=== PATIENT | female | born 1970 | race Caucasian/White ===

== ENCOUNTER → 2016-11-28 | Outpatient (CLI) | payer OTHER ==
[~2016-11-28] MED LIST: ALENDRONATE SOD70 MG PO; CALCIUM500 MG PO; FLONASE 0.05%50 MCG NASAL; HYDROCODON-ACE1 EAC8 PO; IRON325 PO; LEVAQUIN 500 M500 M2 PO; LEVAQUIN 750 M750 MG PO; LOMOTIL TABLET1 EACH PO; OMEPRAZOLE40 MG PO; POTASSIUM CHLO20 MEQ PO; THRIVE; VANCO1GM IV; ZOLOFT50 MG PO
[2016-11-28 14:29] LABS: HEMATOCRIT 31.5 % (37.0-47.0); HEMOGLOBIN 10.4 gm/dL (12.0-15.0); MCH 29.5 pg (26.0-34.0); MCHC 33.1 g/dL (28.0-37.0); MCV 89.3 fL (80.0-100.0); RBC 3.53 mil/uL (4.20-5.00); RDW 18.4 % (10.5-14.5); WBC 4.3 thou/uL (4.0-11.0)
[2016-11-28 14:51] LABS: ALBUMIN 3.4 g/dL (3.4-5.0); CALCIUM 8.7 mg/dL (8.5-10.1); CREATININE 0.6 mg/dL (0.6-1.0); POTASSIUM 3.8 mmol/L (3.5-5.1); TOTAL BILIRUBIN 0.4 mg/dL (<0.1-1.0); TOTAL PROTEIN 6.7 g/dL (6.4-8.2)
[2016-11-28 15:14] VITALS: BP 134/79
[2016-11-28 15:15] VITALS: BP 134/79
== END ==
LOC: OPONC 10:55
PROVIDERS: Specialist
DX: T81.4XXA Infection following a procedure, initial encounter (principal)
CPT/HCPCS: 95000

== ENCOUNTER 2016-12-15 19:33 | Inpatient (IN) | payer OTHER ==
[~2016-12-15] VITALS: Ht 165.1 cm; Wt 79.2 kg
--- NOTE | ~2016-12-15 | HC ---
[facility] Madalyn [place] [address] CONSULTATION Name: MARILYNDAWIT J Room #: 417-I ADM IN ..#: [id number] Admission: 12/15/16 Attend Phys: Mary Jane Harrison MD Discharge: Date of : 70 Report #: [id number] THIS REPORT FOR: //name// CC: Lisandro Harrison CHIEF COMPLAINT: Evaluate left infected nonunion, subtalar joint with fever, headache and acute renal failure. 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 She has a history of left foot inversion since . In February 2016, she underwent a fusion of the subtalar joint and talonavicular joint. Despite being nonweightbearing for 3 months, she had persistent nonunion. She was taken to surgery by Dr. Dozier on 11/26/2016 for exploration of the joint and explantation of the talonavicular hardware. There was gross evidence of infection. Cultures remain negative. Initially treated with Levaquin, then switched to vancomycin. She has been on vancomycin since 11/28/2016. Was overall doing reasonably well with good healing of her incision. Her last laboratory studies on 12/09/2016 revealed a hemoglobin of 10.2, WBC 4.6, platelet count 224,000 with unremarkable differential, sedimentation rate 15, creatinine 0.6. Liver function tests normal. Vancomycin trough 13.1. Her last office visit was on 12/11/2016. She had just been back to work and noticed that she was a bit fatigued and had some myalgias. Subsequently following that visit she developed fever. Blood cultures and urine culture were obtained on December 13, which remained negative. She presented to the Emergency Room at my direction because of persistent fever. There, her laboratory studies noted a creatinine over 5 with increased liver function tests and was therefore transferred to [facility]. She reports headache, neck pain along with pain in her upper shoulders and back. Temperature up to 101 degrees. Occasional chill. Mild photophobia. No pharyngitis symptoms, although she has had sinus congestion. No cough or sputum production. No nausea, vomiting or diarrhea. She has been noticing decreased urine output the last several days. Denies any rash. No increased pain in her left foot. ALLERGIES: ADHESIVE TAPE, PERCOCET, ORAL STEROIDS. MEDICATIONS: Include vancomycin 1200 mg q.12 hours, sertraline, omeprazole, p.r.n. Lomotil, potassium, alendronate, fluticasone, iron, calcium, hydrocodone with Tylenol. PAST MEDICAL HISTORY: Tonsillectomy, cholecystectomy, appendectomy, hysterectomy, mini gastric bypass and [place] [address] CONSULTATION Name: DAWIT SANDERS Room #: 417-I ADM IN M.R.#: [id number] Admission: 12/15/16 Attend Phys: Mary Jane Harrison MD Discharge: Date of : 70 Report #: [id number] FAMILY HISTORY: Stroke, cancer breast, diabetes. SOCIAL HISTORY: Nonsmoker, no significant alcohol intake, no HIV risk factors. REVIEW OF SYSTEMS: As noted above. PHYSICAL EXAMINATION: VITAL SIGNS: Afebrile, temperature was 99.7, vital signs stable. GENERAL: She was alert and cooperative and pleasant, in no acute distress. HEENT: Unremarkable. NECK: Supple, no adenopathy, no rashes. Her neck was supple. Mental status normal. LUNGS: Clear. HEART: Regular, without murmur. ABDOMEN: Soft, nontender, no hepatosplenomegaly or mass identified. EXTREMITIES: Left ankle incision well approximated. No cellulitis. Right upper extremity PICC site was unremarkable. PICC having been removed yesterday evening. LABORATORY STUDIES: As noted, I called on her microbiology reports from [place], [place]. Blood and urine cultures negative to date. Chest x-ray was clear. I have ultrasound ordered. IMPRESSION: A 46-year-old with left ankle nonunion on IV antibiotic therapy now for approximately 4 weeks. Acute febrile syndrome with profound headache and acute renal failure with evidence of hepatitis. The acute renal failure is nonoliguric. Considerations would include vancomycin reaction, now toxicity, acute viral process with meningitis and hepatitis. Central venous catheter infection still possible, but that would not explain her acute renal failure. It is noted that her albumin and protein were very elevated and we will also screen for paraprotein process. RECOMMENDATION: Had held her vancomycin. Her level is toxic at this time due to her acute renal failure. We will have Nephrology evaluate and assist with her acute renal failure. Obtain ultrasound of her abdomen. Since her blood cultures are negative at 3 days, I will obtain a spinal tap and CT scan of the head to ensure there is no evidence of meningitis. We will also check viral studies and paraprotein studies. She will be continued on IV fluids to maintain adequate urine output and hydration. <ELECTRONICALLY SIGNED> By: Lisandro Baez MD 12/17/16 1113 0944 [facility] Lisandro Baez MD /nt
--- NOTE | ~2016-12-15 | S ---
[facility] [place] [place] [address] SURGICAL PATH RPT PROCEDURE Name: JULIANA SANDERS Room #: 417-I ADM IN M.R.#: [id number] Admission: 12/15/16 Date of : 70 Discharge: Report #: [id number] Path Case #: [id number] PATHOLOGY REPORT COLLECTION DATE: 12/19/2016 RECEIVED DATE: 12/19/2016 SUBMITTING PHYS: Dr. Triston Delaney OTHER PHYS: SPECIMEN(S) RECEIVED: A.Gastritis * * * * * * * * * * * * FINAL DIAGNOSIS: Stomach, biopsy: - Chronic inactive gastritis with reactive features. - An H. pylori immunostain is negative (Block A1; appropriately reactive control). PATHOLOGIST: Ry Tanner M.D. REPORT ELECTRONICALLY SIGNED BY: Ry Tanner M.D. DATE/TIME: 12/22/2016 10:44 * * * * * * * * * * * * GROSS PATHOLOGY: Received in formalin labeled "Juliana Sanders, BX of gastritis," are 4 segments of gonzalez soft tissue measuring 1.9 x 0.3 x 0.3 cm in aggregate dimensions and ranging from 0.2 to 0.4 cm in maximum dimension. The specimen is submitted entirely in cassette A1. (TSD; 12/19/2016) CLINICAL HISTORY: Hx of ulcers INITIAL CPT CODE(S): A; 81555, 35879 Professional services performed by [facility] at [facility] [address] [place] [address] Technical services performed by [facility] at [address] [place] [address], [place] [address], [place] [address]. [facility] [address] [place] [address] SURGICAL PATH RPT PROCEDURE Name: JULIANA SANDERS Room #: 417-I ADM IN M.R.#: [id number] Admission: 12/15/16 Date of : 70 Discharge: Report #: [id number] Path Case #: [id number] [facility] [address] PHONE: [phone] DIRECTOR: Salvador Bridges M.D. * * * END OF REPORT * * *
--- NOTE | ~2016-12-15 | P ---
[facility] [place] [address] PROCEDURE REPORT Name: DAWIT SANDERS Room #: 417-I [facility]#: [id number] Admission: 12/15/16 Attend Phys: Mary Jane Harrison MD Discharge: 12/24/16 Date of : 70 Report #: [id number] THIS REPORT FOR: //name// CC: Lisandro Harrison INPATIENT UPPER ENDOSCOPY REPORT BRIEF HISTORY: The patient is a 46-year-old woman who has had recent difficulties with hardware for orthopedic surgery with evidence of infection. She also has acute kidney injury. She has developed nausea and vomiting. She also has anemia. She does have a history of bariatric surgery and she calls it "mini gastric bypass." She does report a prior history of bleeding gastric ulcer and avoid use of nonsteroidals because of that. PREOPERATIVE DIAGNOSES: Anemia, nausea and vomiting. POSTOPERATIVE DIAGNOSES: 1. Mild esophagitis. 2. Small hiatus hernia. 3. Gastric changes consistent with previous bariatric surgery. MEDICATIONS: Deep sedation with propofol per anesthesia. SPECIMEN: Biopsies of gastric mucosa rule out H. pylori. ESTIMATED BLOOD LOSS: 3 mL. PROCEDURE: EGD with biopsy. FINDINGS: Prior to propofol sedation, procedure of upper endoscopy was reviewed with the patient as well as potential risks and its complications. She indicates she understands and desires to proceed. DESCRIPTION OF PROCEDURE: With the patient in left lateral decubitus position, the Fuji video endoscope was inserted in the cervical esophagus under direct vision without difficulty. Examination of this organ through its entire length revealed normal esophageal mucosa down the squamocolumnar junction. The squamocolumnar junction was intact. There were few erosions. No ulcers were seen. There was no evidence of Chavarria's mucosa. Beyond the GE junction, a small 2 cm hiatus hernia was seen. Mucosa and hernia was normal. It was also noted she had some bile secretions within her stomach. The scope was advanced. I am not exactly sure what was done with regards to her bariatric surgery. She said she had a mini gastric bypass. However, it appears to me that there was a long tubular structure of the stomach, which looks more like a sleeve. I wonder if she had some sort of gastric stapling. Then, there was anastomosis with what [facility] [address] [place] [address] PROCEDURE REPORT Name: DAWIT SANDERS Room #: 417-I [facility].#: [id number] Admission: 12/15/16 Attend Phys: Mary Jane Harrison MD Discharge: 12/24/16 Date of : 70 Report #: [id number] looks like a gastrojejunostomy. Two limbs were identified. One limb was copious with bile presumably the apparent limb from the duodenum. I passed the scope the entire length to this limb, but could not reach the proximal duodenum. The other limb was entered. There was no bile in this limb. I advanced the scope the entire length, but no other abnormalities were seen. Scope was withdrawn back into the stomach and anastomosis was inspected. She has a history of an ulcer, but I see no evidence of ulcers. The mucosa anastomosis intact. At that point, the scope was slowly withdrawn and careful circumferential views confirmed the above findings. The patient tolerated the procedure well. DISPOSITION: The patient with abdominal pain, nausea and vomiting. I do not see evidence of ulcer disease, nor do I see evidence of outlet obstruction. We will continue PPI. We will follow up on biopsies. We will also add sucralfate. We will treat nausea and vomiting symptomatically at this time. <ELECTRONICALLY SIGNED> By: Triston Delaney MD 12/25/16 1200 [id number] Triston Delaney MD /nt
[2016-12-15 19:41] VITALS: BP 133/75
[2016-12-15 19:54] VITALS: BP 144/66
[2016-12-15 20:31] LABS: ABSOLUTE NEUTROPHILS 3.6 thou/uL (1.4-8.2); BASOPHILS 0.5 % (0.0-2.0); EOSINOPHILS 4.5 % (0.0-3.0); HEMATOCRIT 27.4 % (37.0-47.0); HEMOGLOBIN 9.3 gm/dL (12.0-15.0); LYMPHOCYTES 11.4 % (24.0-44.0); MANUAL DIFF NO; MCH 30.2 pg (26.0-34.0); MCV 88.8 fL (80.0-100.0); MONOCYTES 9.8 % (1.0-8.0); PLATELET COUNT 209 thou/uL (150-400); POLYS 73.8 % (36.0-66.0); RBC 3.09 mil/uL (4.20-5.00); RDW 15.9 % (10.5-14.5); WBC 4.8 thou/uL (4.0-11.0)
[2016-12-15 20:40] LABS: CALCIUM 7.9 mg/dL (8.5-10.1); CREATININE 5.6 mg/dL (0.6-1.0); POTASSIUM 3.8 mmol/L (3.5-5.1)
[2016-12-15] MEDS ORDERED: VANCOMYCIN1.25 GM/22 IV (21:07)
[2016-12-15 21:50] VITALS: BP 128/78
[2016-12-15 22:00] VITALS: BP 135/90
[2016-12-15 22:19] LABS: ALBUMIN 15.7 g/dL (3.4-5.0); TOTAL BILIRUBIN 1.2 mg/dL (<0.1-1.0); TOTAL PROTEIN 52.8 g/dL (6.4-8.2)
[2016-12-15 22:25] LABS: URINE BILIRUBIN NEGATIVE (Negative); URINE BLOOD TRACE (Negative); URINE COLOR YELLOW; URINE GLUCOSE-RANDOM* NEGATIVE (Negative); URINE KETONES NEGATIVE (Negative); URINE NITRITE NEGATIVE (Negative); URINE PROTEIN (DIPSTICK) NEGATIVE (Negative); URINE SPECIFIC GRAVITY <= 1.005 (1.003-1.035); URINE UROBILINOGEN 0.2 E.U./dl (0.2-1.0)
[2016-12-15 22:32] LABS: DIRECT BILIRUBIN 0.1 mg/dL (<0.1-0.3)
[2016-12-15] MEDS ORDERED: POTASSIUM20 PO (22:42)
[2016-12-15] MEDS ORDERED: VANCO 1.251.25 GM/15 IV (22:46)
[2016-12-16] VITALS: BP 127/77
[2016-12-16 04:11] VITALS: BP 126/74
[2016-12-16 06:25] LABS: CALCIUM 7.4 mg/dL (8.5-10.1); CREATININE 5.7 mg/dL (0.6-1.0); MAGNESIUM 2.2 mg/dL (1.8-2.4); PHOSPHORUS 4.8 mg/dL (2.5-4.9); POTASSIUM 3.1 mmol/L (3.5-5.1)
[2016-12-16 07:18] VITALS: BP 131/71
[2016-12-16 07:48] LABS: PROTIME 10.3 Seconds (9.3-11.4)
[2016-12-16 10:02] LABS: CALCIUM 7.8 mg/dL (8.5-10.1); CREATININE 5.4 mg/dL (0.6-1.0); POTASSIUM 3.5 mmol/L (3.5-5.1)
[2016-12-16 10:07] LABS: ALBUMIN 2.5 g/dL (3.4-5.0); TOTAL BILIRUBIN 0.5 mg/dL (<0.1-1.0)
[2016-12-16 11:45] LABS: MAGNESIUM 2.2 mg/dL (1.8-2.4); PHOSPHORUS 5.3 mg/dL (2.5-4.9)
[2016-12-16 13:11] LABS: IgA 118 mg/dL (87-352); IgG 749 mg/dL (700-1600); IgM 53 mg/dL (26-217)
[2016-12-16 13:21] LABS: SMEAR FOR EOSINOPHILS Rare per HPF
[2016-12-16 13:38] LABS: CSF GLUCOSE 53 mg/dL (40-70); CSF PROTEIN 39 mg/dL (15-45)
[2016-12-16 13:55] LABS: CSF CLARITY CLEAR; CSF COLOR COLORLESS; NUMBER OF TUBES 3; VOLUME 6 ml
[2016-12-16 14:01] LABS: CSF WBC 2 /mm3 (0-10); MANUAL DIFF NO
[2016-12-16 15:26] VITALS: BP 130/76
[2016-12-16 19:28] VITALS: BP 109/89
[2016-12-17 03:13] VITALS: BP 119/65
[2016-12-17 05:50] LABS: ABSOLUTE NEUTROPHILS 2.3 thou/uL (1.4-8.2); BASOPHILS 1.3 % (0.0-2.0); EOSINOPHILS 8.5 % (0.0-3.0); HEMATOCRIT 24.1 % (37.0-47.0); LYMPHOCYTES 15.9 % (24.0-44.0); MCH 29.9 pg (26.0-34.0); MCHC 33.2 g/dL (28.0-37.0); MCV 90.2 fL (80.0-100.0); PLATELET COUNT 207 thou/uL (150-400); POLYS 63.3 % (36.0-66.0); RBC 2.67 mil/uL (4.20-5.00); RDW 15.4 % (10.5-14.5); WBC 3.7 thou/uL (4.0-11.0)
[2016-12-17 06:04] LABS: MANUAL DIFF NO
[2016-12-17 06:08] LABS: ALBUMIN 2.2 g/dL (3.4-5.0); CALCIUM 7.7 mg/dL (8.5-10.1); CREATININE 5.4 mg/dL (0.6-1.0); PHOSPHORUS 5.1 mg/dL (2.5-4.9); POTASSIUM 3.3 mmol/L (3.5-5.1); TOTAL BILIRUBIN 0.3 mg/dL (<0.1-1.0); TOTAL PROTEIN 5.3 g/dL (6.4-8.2)
[2016-12-17 07:12] LABS: HEPATITIS C VIRUS AB <0.1 (0.0-0.9)
[2016-12-17 07:26] VITALS: BP 118/73
[2016-12-17 15:29] VITALS: BP 129/67
[2016-12-17 16:18] LABS: HSV PCR SOURCE CSF
[2016-12-17 20:00] VITALS: BP 134/74
[2016-12-18 04:00] VITALS: BP 125/78
[2016-12-18 05:56] LABS: HEMATOCRIT 24.3 % (37.0-47.0); HEMOGLOBIN 8.1 gm/dL (12.0-15.0); MCHC 33.4 g/dL (28.0-37.0); MCV 89.8 fL (80.0-100.0); PLATELET COUNT 217 thou/uL (150-400); RBC 2.71 mil/uL (4.20-5.00); RDW 15.2 % (10.5-14.5); WBC 3.4 thou/uL (4.0-11.0)
[2016-12-18 06:12] LABS: ALBUMIN 2.1 g/dL (3.4-5.0); CALCIUM 7.5 mg/dL (8.5-10.1); CREATININE 4.9 mg/dL (0.6-1.0); PHOSPHORUS 5.3 mg/dL (2.5-4.9); POTASSIUM 3.6 mmol/L (3.5-5.1)
[2016-12-18 06:16] LABS: MANUAL DIFF YES
[2016-12-18 07:40] VITALS: BP 132/74
[2016-12-18 07:40] LABS: ABSOLUTE NEUTROPHILS 1.8 thou/uL (1.4-8.2); TOTAL CELL COUNT 100
[2016-12-18 07:41] LABS: ANISOCYTOSIS 1+; OVALOCYTES 1+
[2016-12-18 09:11] LABS: ALBUMIN 2.4 g/dL (2.9-4.4); ALPHA 1 0.3 g/dL (0.0-0.4); ALPHA 2 0.6 g/dL (0.4-1.0); BETA 0.7 g/dL (0.7-1.3); GAMMA 0.8 g/dL (0.4-1.8); M-SPIKE Not Observed g/dL (Not Observed)
[2016-12-18 16:23] VITALS: BP 131/78
[2016-12-18 21:22] VITALS: BP 133/71
[2016-12-19 03:36] VITALS: BP 129/79
[2016-12-19 03:43] LABS: HEMATOCRIT 22.4 % (37.0-47.0); HEMOGLOBIN 7.8 gm/dL (12.0-15.0); MCH 31.2 pg (26.0-34.0); MCHC 34.9 g/dL (28.0-37.0); MCV 89.3 fL (80.0-100.0); PLATELET COUNT 211 thou/uL (150-400); RBC 2.51 mil/uL (4.20-5.00); RDW 15.6 % (10.5-14.5); WBC 2.9 thou/uL (4.0-11.0)
[2016-12-19 03:59] LABS: ALBUMIN 2.2 g/dL (3.4-5.0); CALCIUM 7.4 mg/dL (8.5-10.1); CREATININE 4.5 mg/dL (0.6-1.0); PHOSPHORUS 5.3 mg/dL (2.5-4.9); POTASSIUM 3.4 mmol/L (3.5-5.1)
[2016-12-19 04:04] LABS: % SATURATION 34 % (20-39); IRON 64 ug/dL (50-170); MANUAL DIFF YES; TIBC 191 ug/dL (250-450); UIBC 127 ug/dL
[2016-12-19 04:36] LABS: TSH 2.49 uIU/mL (0.358-3.740)
[2016-12-19 05:12] LABS: FOLIC ACID 27.1 ng/mL (8.6-58.9)
[2016-12-19 05:13] LABS: ABSOLUTE NEUTROPHILS 1.7 thou/uL (1.4-8.2); LARGE PLATELETS OCCASIONAL; TOTAL CELL COUNT 100
[2016-12-19 07:30] VITALS: BP 133/76
[2016-12-19 16:00] VITALS: BP 130/86
[2016-12-19 19:04] VITALS: BP 133/75
[2016-12-20 04:22] VITALS: BP 147/87
[2016-12-20 06:11] LABS: HEMATOCRIT 22.6 % (37.0-47.0); HEMOGLOBIN 7.7 gm/dL (12.0-15.0); MCH 30.4 pg (26.0-34.0); MCHC 33.8 g/dL (28.0-37.0); RBC 2.51 mil/uL (4.20-5.00); RDW 15.5 % (10.5-14.5); WBC 2.7 thou/uL (4.0-11.0)
[2016-12-20 06:31] LABS: ALBUMIN 2.4 g/dL (3.4-5.0); ALKALINE PHOSPHATASE 291 U/L (46-116); ANION GAP 12 mmol/L (7-16); BUN 34 mg/dL (7-18); CALCIUM 7.4 mg/dL (8.5-10.1); CHLORIDE 111 mmol/L (98-107); CO2 20 mmol/L (21-32); CREATININE 4.5 mg/dL (0.6-1.0); DIRECT BILIRUBIN < 0.1 mg/dL (<0.1-0.3); GLUCOSE 104 mg/dL (74-106); PHOSPHORUS 4.6 mg/dL (2.5-4.9); POTASSIUM 3.2 mmol/L (3.5-5.1); SGOT 17 U/L (15-37); SGPT 46 U/L (30-65); SODIUM 143 mmol/L (136-145); TOTAL BILIRUBIN 0.3 mg/dL (<0.1-1.0); TOTAL PROTEIN 5.3 g/dL (6.4-8.2)
[2016-12-20 07:07] VITALS: BP 157/91
[2016-12-20 08:16] VITALS: BP 153/86
[2016-12-20 15:14] VITALS: BP 152/91
[2016-12-20 20:00] VITALS: BP 165/96
[2016-12-21 04:11] LABS: HEMATOCRIT 21.6 % (37.0-47.0); HEMOGLOBIN 7.3 gm/dL (12.0-15.0); MCH 30.3 pg (26.0-34.0); MCHC 33.9 g/dL (28.0-37.0); MCV 89.5 fL (80.0-100.0); PLATELET COUNT 210 thou/uL (150-400); RBC 2.42 mil/uL (4.20-5.00); RDW 15.3 % (10.5-14.5); WBC 2.9 thou/uL (4.0-11.0)
[2016-12-21 04:17] LABS: MANUAL DIFF YES
[2016-12-21 04:28] LABS: ALBUMIN 2.5 g/dL (3.4-5.0); CALCIUM 7.6 mg/dL (8.5-10.1); CREATININE 3.9 mg/dL (0.6-1.0); PHOSPHORUS 4.1 mg/dL (2.5-4.9); POTASSIUM 3.5 mmol/L (3.5-5.1)
[2016-12-21 04:30] VITALS: BP 145/92
[2016-12-21 06:19] LABS: ABSOLUTE NEUTROPHILS 1.4 thou/uL (1.4-8.2); ANISOCYTOSIS 1+; TOTAL CELL COUNT 100
[2016-12-21 07:18] VITALS: BP 151/93
[2016-12-21 15:43] VITALS: BP 163/89
[2016-12-21 19:36] VITALS: BP 167/89
[2016-12-22 00:04] VITALS: BP 153/77
[2016-12-22 04:33] VITALS: BP 151/88
[2016-12-22 05:21] LABS: ABSOLUTE NEUTROPHILS 1.8 thou/uL (1.4-8.2); BASOPHILS 1.2 % (0.0-2.0); EOSINOPHILS 9.6 % (0.0-3.0); HEMATOCRIT 22.6 % (37.0-47.0); HEMOGLOBIN 7.7 gm/dL (12.0-15.0); LYMPHOCYTES 25.3 % (24.0-44.0); MCH 30.6 pg (26.0-34.0); MCHC 34.3 g/dL (28.0-37.0); MCV 89.2 fL (80.0-100.0); MONOCYTES 8.5 % (1.0-8.0); PLATELET COUNT 235 thou/uL (150-400); POLYS 55.4 % (36.0-66.0); RBC 2.53 mil/uL (4.20-5.00); RDW 15.3 % (10.5-14.5); WBC 3.2 thou/uL (4.0-11.0)
[2016-12-22 05:30] LABS: MANUAL DIFF NO
[2016-12-22 05:39] LABS: CALCIUM 7.9 mg/dL (8.5-10.1); POTASSIUM 4.3 mmol/L (3.5-5.1)
[2016-12-22 07:30] VITALS: BP 153/84
[2016-12-22 11:08] LABS: c-ANCA <1:20 titer (Neg:<1:20); p-ANCA <1:20 titer (Neg:<1:20)
[2016-12-22 15:45] VITALS: BP 144/81
[2016-12-22 20:00] VITALS: BP 149/85
[2016-12-23 04:47] VITALS: BP 148/85
[2016-12-23 06:40] LABS: ALBUMIN 2.8 g/dL (3.4-5.0); CALCIUM 8.1 mg/dL (8.5-10.1); PHOSPHORUS 3.8 mg/dL (2.5-4.9); POTASSIUM 4.9 mmol/L (3.5-5.1)
[2016-12-23 07:44] VITALS: BP 127/84
[2016-12-23 09:20] LABS: HEMATOCRIT 23.7 % (37.0-47.0); HEMOGLOBIN 7.9 gm/dL (12.0-15.0); MCH 29.7 pg (26.0-34.0); MCHC 33.2 g/dL (28.0-37.0); MCV 89.5 fL (80.0-100.0); RBC 2.65 mil/uL (4.20-5.00); RDW 15.5 % (10.5-14.5); WBC 3.2 thou/uL (4.0-11.0)
[2016-12-23 15:18] VITALS: BP 142/92
[2016-12-23 20:00] VITALS: BP 148/98
[2016-12-24 04:00] VITALS: BP 139/75
[2016-12-24 06:30] LABS: ALBUMIN 2.8 g/dL (3.4-5.0); CALCIUM 8.4 mg/dL (8.5-10.1); CREATININE 3.7 mg/dL (0.6-1.0); PHOSPHORUS 3.5 mg/dL (2.5-4.9); POTASSIUM 5.3 mmol/L (3.5-5.1)
[2016-12-24 07:36] VITALS: BP 144/83
[2016-12-24] MEDS ORDERED: AMPICILLIN TRI250 MG PO ×2 (12:46→13:05)
[2016-12-24] MEDS ORDERED: REGLAN 5 MG TAB5 MG PO (13:00)
[2016-12-24] MEDS ORDERED: PROTONIX40 M1 PO (13:02)
[2016-12-24] MEDS ORDERED: SCOPOLAMINE1 EACH TRANSDERM (13:02)
[2016-12-24] MEDS ORDERED: CARAFATE 1 GM TA1 GM PO (13:03)
[2016-12-24 14:48] VITALS: BP 144/83
== END 2016-12-24 15:56 | disposition home or self-care (01) | DRG 682 ==
LOC: ER 19:33 → EROBS 21:02 → 4E 21:02 → ENTRNSPT 12-22 13:13 → EDTRNSPTSTS 12-22 13:19 → ENTRNSPT 12-24 15:42 → EDTRNSPTSTS 12-24 15:44 → 4E 12-24 15:56
PROVIDERS: Emergency Medicine; Hospitalist; Internal Medicine; Internal Medicine Endocrinology, Diabetes & Metabolism; Internal Medicine Gastroenterology; Internal Medicine Nephrology; Nurse Practitioner Acute Care; Specialist
PROC: B01B1ZZ Fluoroscopy of Spinal Cord using Low Osmolar Contrast (ICD-10-PCS; principal; 2016-12-16)
PROC: 009U3ZX Drainage of Spinal Canal, Percutaneous Approach, Diagnostic (ICD-10-PCS; principal; 2016-12-16)
PROC: 0DB68ZX Excision of Stomach, Via Natural or Artificial Opening Endoscopic, Diagnostic (ICD-10-PCS; 2016-12-19)
DX: N17.0 Acute kidney failure with tubular necrosis (principal); E43 Unspecified severe protein-calorie malnutrition; T36.8X5A Adverse effect of other systemic antibiotics, initial encounter; L08.9 Local infection of the skin and subcutaneous tissue, unspecified; D64.9 Anemia, unspecified; K20.9 Esophagitis, unspecified; K44.9 Diaphragmatic hernia without obstruction or gangrene; R74.0 Nonspecific elevation of levels of transaminase and lactic acid dehydrogenase [LDH]; D89.89 Other specified disorders involving the immune mechanism, not elsewhere classified; D72.1 Eosinophilia; D72.819 Decreased white blood cell count, unspecified; E83.39 Other disorders of phosphorus metabolism; J01.90 Acute sinusitis, unspecified; M35.00 Sjogren syndrome, unspecified; K29.70 Gastritis, unspecified, without bleeding; Z68.29 Body mass index [BMI] 29.0-29.9, adult; Z88.6 Allergy status to analgesic agent; Z90.49 Acquired absence of other specified parts of digestive tract; Z90.710 Acquired absence of both cervix and uterus; Z82.3 Family history of stroke; Z80.3 Family history of malignant neoplasm of breast; Z83.3 Family history of diabetes mellitus; Z87.11 Personal history of peptic ulcer disease; Z79.899 Other long term (current) drug therapy; Z82.49 Family history of ischemic heart disease and other diseases of the circulatory system
CPT/HCPCS: 10084; 62110; 62900; 70005